=== PATIENT | male | born 1960 ===

== ENCOUNTER 2017-09-21 06:13 | Day surgery (SDC) | payer BC, OTHER ==
[~2017-09-21] VITALS: Ht 177.8 cm; Wt 105.0 kg
[~2017-09-21 06:13] MED LIST: ASPI-515 PO; ESCI5TAB7 PO; FENO48TA16 PO; INSU100V8 SQ; METF10002 PO; PRAV40TA2 PO; RAMI10CA PO; SITA25TA PO
[2017-09-21] MEDS ORDERED: EPINEPHRINE 1 MG/ML, 1ML ONE (06:20)
[2017-09-21] MEDS ORDERED: BUPIVACAINE/PF 0.5% ONE (06:20)
[2017-09-21 06:42] VITALS: BP 146/75
[2017-09-21] MEDS ORDERED: LACTATED RINGERS 1,000 ML IV SCH (06:42)
[2017-09-21 07:21] LABS: BASOPHILS # (AUTO) 0.11 x10^3/uL (0-0.1); BASOPHILS % (AUTO) 1 % (0-1); EOSINOPHILS # (AUTO) 0.37 x10^3/uL (0-0.4); EOSINOPHILS % (AUTO) 3 % (1-7); LYMPHOCYTES % (AUTO) 14 % (22-44); MD NO; MEAN CORPUSCULAR HGB CONC 32.9 g/dL (33.2-36.2); MEAN CORPUSCULAR VOLUME 82.2 fL (81-97); MEAN PLATELET VOLUME 7.9 fL (7.4-10.4); MONOCYTES # (AUTO) 0.67 x10^3/uL (0.2-0.8); MONOCYTES % (AUTO) 6 % (2-9); NEUTROPHILS # (AUTO) 8.33 x10^3/uL (1.8-6.8); NEUTROPHILS % (AUTO) 76 % (42-75); PLATELET COUNT 292 x10^3/uL (130-400); RED BLOOD COUNT 5.12 x10^6/uL (4.38-5.82); RED CELL DISTRIBUTION WIDTH 16.5 % (9.4-14.8)
[2017-09-21 07:32] LABS: ALANINE AMINOTRANSFERASE 29 U/L (12-78); ALBUMIN 3.2 g/dL (3.4-5.0); ANION GAP 7 mmol/L (5-15); CALCIUM 8.2 mg/dL (8.5-10.1); CHLORIDE 106 mmol/L (98-107)
[2017-09-21 07:34] LABS: ALKALINE PHOSPHATASE 117 U/L (45-117); BILIRUBIN,TOTAL 0.5 mg/dL (0.2-1.0); CREATININE 0.99 mg/dL (0.7-1.3); TOTAL PROTEIN 6.6 g/dL (6.4-8.2)
[2017-09-21] MEDS ORDERED: PROPOFOL 10 MG/ML, 50ML ONE (07:40)
[2017-09-21] MEDS ORDERED: CEFAZOLIN 1,000 MG ONE (07:40)
[2017-09-21] MEDS ORDERED: MIDAZOLAM 1 MG/ML, 2ML ONE (08:02)
[2017-09-21] MEDS ORDERED: ACETAMINOPHEN 325 MG TABLET PO PRN (09:00)
[2017-09-21] MEDS ORDERED: FENTANYL PF 100 MCG/2ML IV PRN (09:00)
[2017-09-21] MEDS ORDERED: OXYcodone 5 MG/5 ML ORAL.SOL UDC PO PRN (09:00)
[2017-09-21] MEDS ORDERED: LABETALOL 5MG/ML, 20ML IV PRN (09:00)
[2017-09-21] MEDS ORDERED: ONDANSETRON 2MG/ML, 2ML IVPush PRN (09:00)
[2017-09-21] MEDS ORDERED: hydrALAzine 20 MG/ML, 1ML IV PRN (09:00)
== END 2017-09-21 10:15 ==
LOC: OUT 06:13
PROVIDERS: ATTEND Surgery
DX: R51 Headache (principal); Z72.89 Other problems related to lifestyle; Z88.6 Allergy status to analgesic agent
CPT/HCPCS: 36415; 37609; 80053; 85025; 88305; J0171; J0690; J2250; J2704; J3490; J7120

== ENCOUNTER 2018-11-07 09:41 | Inpatient (IN) | payer BC ==
[~2018-11-07] VITALS: Ht 177.8 cm; Wt 98.2 kg
[~2018-11-07 09:41] MED LIST changes: -RAMI10CA PO; +RAMI10CA59 PO
[2018-11-07] MEDS ORDERED: HYDROmorphone 2 MG/ML, 1ML ONE (09:56)
[2018-11-07] MEDS ORDERED: FENTANYL PF 100 MCG/2ML ONE ×2 (09:58→10:54)
[2018-11-07] MEDS ORDERED: HEPARIN 1,000 UNITS/ML, 10ML ONE (09:59)
[2018-11-07] MEDS ORDERED: TICAGRELOR 90 MG TABLET ONE (09:59)
[2018-11-07] MEDS ORDERED: MIDAZOLAM 1 MG/ML, 5ML ONE ×2 (09:59→10:54)
[2018-11-07] MEDS ORDERED: LIDOCAINE 2%, 20ML ONE (09:59)
[2018-11-07] MEDS ORDERED: NITROGLYCERIN 5 MG/ML, 10ML ONE (09:59)
[2018-11-07] MEDS ORDERED: VERAPAMIL 2.5 MG/ML, 2ML ONE (09:59)
[2018-11-07] MEDS ORDERED: BIVALIRUDIN 250 MG ONE (09:59)
[2018-11-07] MEDS ORDERED: HYDROmorphone 1 MG/ML, 1ML INJ IV ONE (10:00)
--- NOTE | 2018-11-07 10:33 | NUR ---
[place]. ED ARRIVAL 0940. ICE BAG ASSEM[employer]ER DR OSORIO TO BEDSIDE 0945. PT REPORTS SUBSTERNAL CP STARTING AT 0300 THIS AM AND THEN WENT TO [facility] IN [place] AT 0750. PT ARRIVED WITH NITRO. GTT AND HEPARIN RUNNING UPON ARRIVAL. 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 VSS. [id number]&[id number]
[2018-11-07] MEDS ORDERED: DIPHENHYDRAMINE 50 MG/ML, 1ML ONE (10:54)
[2018-11-07] MEDS ORDERED: ENALAPRILAT 1.25 MG/ML, 2ML IVPush PRN (15:00)
[2018-11-07] MEDS ORDERED: HYDROmorphone 2 MG/ML, 1ML IVPush PRN (15:00)
[2018-11-07] MEDS ORDERED: DOCUSATE 100 MG CAPSULE PO PRN (15:00)
[2018-11-07] MEDS ORDERED: ONDANSETRON 2MG/ML, 2ML IVPush PRN (15:00)
[2018-11-07] MEDS ORDERED: POLYETHYLENE GLYCOL 17 GM PACKET PO PRN (15:00)
[2018-11-07] MEDS ORDERED: BISACODYL 10 MG SUPP PR PRN (15:00)
[2018-11-07] MEDS ORDERED: ENOXAPARIN 40 MG/0.4 ML SQ SCH (15:00)
[2018-11-07] MEDS ORDERED: LABETALOL 5MG/ML, 20ML IVPush PRN (15:00)
[2018-11-07] MEDS ORDERED: OXYcodone/APAP 5/325MG TABLET ONE (15:05)
[2018-11-07] MEDS: OXYcodone/APAP 5/325MG TABLET PO PRN ×2 (15:06→19:23)
[2018-11-07] MEDS ORDERED: INSULIN REGULAR 100 UNITS/ML, 3ML VIAL SQ-INSULIN SCH (16:00)
[2018-11-07] MEDS: INSULIN LISPRO 100 UNITS/ML, PEN SQ-INSULIN SCH ×2 (16:54→19:39)
[2018-11-07] MEDS: CARVEDILOL 3.125 MG TABLET PO SCH (16:54)
[2018-11-07] MEDS ORDERED: PRAVASTATIN 40 MG TABLET PO SCH (21:00)
[2018-11-08] MEDS: OXYcodone/APAP 5/325MG TABLET PO PRN (03:34)
[2018-11-08 04:17] LABS: MICROSCOPIC AUTO
[2018-11-08 04:20] LABS: CULTURE INDICATED? NO
[2018-11-08 04:38] LABS: BASOPHILS # (AUTO) 0.07 x10^3/uL (0-0.1); BASOPHILS % (AUTO) 1 % (0-1); EOSINOPHILS # (AUTO) 0.23 x10^3/uL (0-0.4); EOSINOPHILS % (AUTO) 2 % (1-7); LYMPHOCYTES # (AUTO) 1.31 x10^3/uL (1-3.4); LYMPHOCYTES % (AUTO) 9 % (22-44); MD NO; MEAN CORPUSCULAR HEMOGLOBIN 29.8 pg (27.5-34.5); MEAN CORPUSCULAR VOLUME 90.1 fL (81-97); MEAN PLATELET VOLUME 8.1 fL (7.4-10.4); MONOCYTES % (AUTO) 6 % (2-9); NEUTROPHILS # (AUTO) 11.54 x10^3/uL (1.8-6.8); NEUTROPHILS % (AUTO) 83 % (42-75); PLATELET COUNT 246 x10^3/uL (130-400); RED BLOOD COUNT 5.16 x10^6/uL (4.38-5.82); RED CELL DISTRIBUTION WIDTH 15.8 % (9.4-14.8)
[2018-11-08 04:52] LABS: ALBUMIN 3.2 g/dL (3.4-5.0); CHLORIDE 103 mmol/L (98-107)
[2018-11-08 04:59] LABS: ALANINE AMINOTRANSFERASE 72 U/L (12-78); ALKALINE PHOSPHATASE 94 U/L (45-117); ANION GAP 7 mmol/L (5-15); BILIRUBIN,TOTAL 0.9 mg/dL (0.2-1.0); CALCIUM 8.3 mg/dL (8.5-10.1); CHOL/HDL RATIO 5.1; CHOLESTEROL, TOTAL 97 mg/dL (140-239); HDL CHOL % 20 % (26-37); HDL CHOLESTEROL (DIRECT) 19 mg/dL (40-60); LDL CHOLESTEROL,CALCULATED 45 mg/dL (54-169); LDL/HDL RATIO 2.4 (0.5-3.0); TOTAL PROTEIN 6.3 g/dL (6.4-8.2); TRIGLYCERIDES 164 mg/dL (50-200); VLDL CHOLESTEROL 33 mg/dL (0-25)
[2018-11-08 05:13] LABS: HEMOGLOBIN A1C 7.1 % (4.2-6.3)
[2018-11-08 05:17] VITALS: BP 121/74
[2018-11-08] MEDS: CARVEDILOL 3.125 MG TABLET PO SCH ×2 (05:18→17:40)
[2018-11-08] MEDS: INSULIN LISPRO 100 UNITS/ML, PEN SQ-INSULIN SCH ×4 (07:00→22:11)
[2018-11-08] MEDS ORDERED: POTASSIUM CHLORIDE 20 MEQ TAB.ER.PRT PO ONE (08:30)
[2018-11-08] MEDS: TICAGRELOR 90 MG TABLET PO SCH ×2 (08:54→22:03)
[2018-11-08] MEDS: ASPIRIN 81 MG TABLET EC PO SCH (08:54)
[2018-11-08] MEDS: LISINOPRIL 20 MG TABLET PO SCH (08:55)
[2018-11-08] MEDS: ESCITALOPRAM 10MG TABLET PO SCH (08:56)
[2018-11-08] MEDS: SENNA/DOCUSATE TABLET PO SCH (08:56)
[2018-11-08] MEDS ORDERED: LISINOPRIL 20 MG TABLET PO SCH (09:00)
[2018-11-08] MEDS: FENOFIBRATE 54 MG TABLET PO SCH (09:05)
[2018-11-08] MEDS: ENOXAPARIN 40 MG/0.4 ML SQ SCH (09:05)
[2018-11-08] MEDS: INSULIN GLARGINE 100 UNITS/ML, PEN SQ-INSULIN SCH (09:06)
[2018-11-08 10:32] VITALS: BP 150/89
[2018-11-08 12:41] VITALS: BP 151/87
[2018-11-08] MEDS: ACETAMINOPHEN 325 MG TABLET PO PRN (19:34)
[2018-11-08 19:50] VITALS: BP 142/84
[2018-11-08] MEDS: ATORVASTATIN 80 MG TABLET PO SCH (22:03)
[2018-11-09 03:13] VITALS: BP 124/85
[2018-11-09 05:27] LABS: BASOPHILS # (AUTO) 0.06 x10^3/uL (0-0.1); BASOPHILS % (AUTO) 1 % (0-1); EOSINOPHILS # (AUTO) 0.15 x10^3/uL (0-0.4); EOSINOPHILS % (AUTO) 1 % (1-7); LYMPHOCYTES % (AUTO) 12 % (22-44); MD NO; MEAN CORPUSCULAR HEMOGLOBIN 29.3 pg (27.5-34.5); MEAN CORPUSCULAR HGB CONC 32.9 g/dL (33.2-36.2); MEAN PLATELET VOLUME 7.6 fL (7.4-10.4); MONOCYTES % (AUTO) 8 % (2-9); NEUTROPHILS # (AUTO) 9.37 x10^3/uL (1.8-6.8); NEUTROPHILS % (AUTO) 79 % (42-75); PLATELET COUNT 232 x10^3/uL (130-400); RED BLOOD COUNT 5.36 x10^6/uL (4.38-5.82); RED CELL DISTRIBUTION WIDTH 15.3 % (9.4-14.8)
[2018-11-09 05:40] LABS: ALANINE AMINOTRANSFERASE 50 U/L (12-78); ALBUMIN 3.3 g/dL (3.4-5.0); ANION GAP 7 mmol/L (5-15); CALCIUM 8.4 mg/dL (8.5-10.1); CHLORIDE 105 mmol/L (98-107)
[2018-11-09 05:43] LABS: ALKALINE PHOSPHATASE 96 U/L (45-117); CREATININE 0.92 mg/dL (0.7-1.3); TOTAL PROTEIN 6.6 g/dL (6.4-8.2)
[2018-11-09 06:10] VITALS: BP 128/83
[2018-11-09] MEDS: CARVEDILOL 3.125 MG TABLET PO SCH (06:14)
[2018-11-09] MEDS: ACETAMINOPHEN 325 MG TABLET PO PRN (06:36)
[2018-11-09] MEDS: INSULIN LISPRO 100 UNITS/ML, PEN SQ-INSULIN SCH ×4 (07:02→21:35)
[2018-11-09] MEDS: TICAGRELOR 90 MG TABLET PO SCH ×2 (08:31→21:34)
[2018-11-09] MEDS: FENOFIBRATE 54 MG TABLET PO SCH (08:31)
[2018-11-09] MEDS: LISINOPRIL 20 MG TABLET PO SCH (08:31)
[2018-11-09] MEDS: ASPIRIN 81 MG TABLET EC PO SCH (08:31)
[2018-11-09] MEDS: ESCITALOPRAM 10MG TABLET PO SCH (08:32)
[2018-11-09] MEDS: ENOXAPARIN 40 MG/0.4 ML SQ SCH (08:32)
[2018-11-09] MEDS: INSULIN GLARGINE 100 UNITS/ML, PEN SQ-INSULIN SCH (08:32)
[2018-11-09] MEDS: SENNA/DOCUSATE TABLET PO SCH (08:32)
[2018-11-09 09:04] VITALS: BP 144/88
[2018-11-09] MEDS: SODIUM CHLORIDE 0.9% 1,000 ML IV SCH ×2 (11:05→23:11)
[2018-11-09 15:27] VITALS: BP 129/89
[2018-11-09] MEDS ORDERED: MIDAZOLAM 1 MG/ML, 5ML ONE (16:43)
[2018-11-09] MEDS ORDERED: VERAPAMIL 2.5 MG/ML, 2ML ONE (16:43)
[2018-11-09] MEDS ORDERED: FENTANYL PF 100 MCG/2ML ONE (16:43)
[2018-11-09] MEDS ORDERED: BIVALIRUDIN 250 MG ONE ×3 (16:44→18:00)
[2018-11-09] MEDS ORDERED: HEPARIN 1,000 UNITS/ML, 10ML ONE (16:44)
[2018-11-09] MEDS ORDERED: SODIUM CHLORIDE 0.9% 1,000 ML IV SCH (18:14)
[2018-11-09] MEDS: CARVEDILOL 6.25 MG TABLET PO SCH (18:44)
[2018-11-09 20:25] VITALS: BP 167/117
[2018-11-09] MEDS: ACETYLCYSTEINE 600 MG CAPSULE PO SCH (21:34)
[2018-11-09] MEDS: ATORVASTATIN 80 MG TABLET PO SCH (21:34)
[2018-11-10 03:40] VITALS: BP 126/84
[2018-11-10] MEDS: CARVEDILOL 6.25 MG TABLET PO SCH (05:21)
[2018-11-10 05:33] LABS: BASOPHILS # (AUTO) 0.01 x10^3/uL (0-0.1); BASOPHILS % (AUTO) 0 % (0-1); EOSINOPHILS # (AUTO) 0.16 x10^3/uL (0-0.4); EOSINOPHILS % (AUTO) 1 % (1-7); LYMPHOCYTES # (AUTO) 1.35 x10^3/uL (1-3.4); LYMPHOCYTES % (AUTO) 10 % (22-44); MD NO; MEAN CORPUSCULAR HEMOGLOBIN 29.7 pg (27.5-34.5); MEAN PLATELET VOLUME 7.9 fL (7.4-10.4); MONOCYTES # (AUTO) 0.78 x10^3/uL (0.2-0.8); MONOCYTES % (AUTO) 6 % (2-9); NEUTROPHILS # (AUTO) 10.91 x10^3/uL (1.8-6.8); NEUTROPHILS % (AUTO) 83 % (42-75); PLATELET COUNT 248 x10^3/uL (130-400); RED CELL DISTRIBUTION WIDTH 15.5 % (9.4-14.8)
[2018-11-10 05:44] LABS: ANION GAP 7 mmol/L (5-15); CALCIUM 8.6 mg/dL (8.5-10.1); CHLORIDE 106 mmol/L (98-107)
[2018-11-10 05:45] LABS: CREATININE 0.88 mg/dL (0.7-1.3)
[2018-11-10] MEDS: INSULIN LISPRO 100 UNITS/ML, PEN SQ-INSULIN SCH (07:00)
[2018-11-10 08:45] VITALS: BP 130/91
[2018-11-10] MEDS: TICAGRELOR 90 MG TABLET PO SCH (08:48)
[2018-11-10] MEDS: ACETYLCYSTEINE 600 MG CAPSULE PO SCH (08:48)
[2018-11-10] MEDS: LISINOPRIL 20 MG TABLET PO SCH (08:48)
[2018-11-10] MEDS: ASPIRIN 81 MG TABLET EC PO SCH (08:48)
[2018-11-10] MEDS: ESCITALOPRAM 10MG TABLET PO SCH (08:48)
[2018-11-10] MEDS: ENOXAPARIN 40 MG/0.4 ML SQ SCH (08:53)
[2018-11-10] MEDS: INSULIN GLARGINE 100 UNITS/ML, PEN SQ-INSULIN SCH (08:53)
[2018-11-10] MEDS: SENNA/DOCUSATE TABLET PO SCH (08:54)
[2018-11-10] MEDS: FENOFIBRATE 54 MG TABLET PO SCH (08:54)
[2018-11-10] MEDS ORDERED: TICA90TA PO (09:07)
[2018-11-10] MEDS ORDERED: ACET325T26 PO (09:07)
[2018-11-10] MEDS ORDERED: LISI-170 PO (09:07)
[2018-11-10] MEDS ORDERED: CARV6.2512 PO (09:07)
[2018-11-10] MEDS ORDERED: ATOR-2 PO (09:07)
[2018-11-10] MEDS ORDERED: NITR0.4T28 SL (09:16)
== END 2018-11-10 11:00 | disposition home or self-care (01) | DRG 246 ==
LOC: EDBD → EDSEX → MERGE 09:41 → ED 10:09 → EDIP 10:13 → CCU 10:40 → 5SO 11-08 10:19 → DCLOUNGE 11-10 10:50
PROVIDERS: ADMIT Internal Medicine; ATTEND Internal Medicine
PROC: 4A023N7 Measurement of Cardiac Sampling and Pressure, Left Heart, Percutaneous Approach (ICD-10-PCS; principal; 2018-11-07)
PROC: 027034Z Dilation of Coronary Artery, One Artery with Drug-eluting Intraluminal Device, Percutaneous Approach (ICD-10-PCS; 2018-11-07)
PROC: B2111ZZ Fluoroscopy of Multiple Coronary Arteries using Low Osmolar Contrast (ICD-10-PCS; 2018-11-07)
PROC: 027136Z Dilation of Coronary Artery, Two Arteries with Three Drug-eluting Intraluminal Devices, Percutaneous Approach (ICD-10-PCS; 2018-11-09)
DX: I21.3 ST elevation (STEMI) myocardial infarction of unspecified site (principal); E87.1 Hypo-osmolality and hyponatremia; F11.20 Opioid dependence, uncomplicated; I50.40 Unspecified combined systolic (congestive) and diastolic (congestive) heart failure; D72.829 Elevated white blood cell count, unspecified; D75.1 Secondary polycythemia; E11.65 Type 2 diabetes mellitus with hyperglycemia; E78.5 Hyperlipidemia, unspecified; E87.6 Hypokalemia; Z96.651 Presence of right artificial knee joint; I11.0 Hypertensive heart disease with heart failure; I25.10 Atherosclerotic heart disease of native coronary artery without angina pectoris; I25.5 Ischemic cardiomyopathy; Z79.891 Long term (current) use of opiate analgesic; Z79.4 Long term (current) use of insulin; Z88.6 Allergy status to analgesic agent; Z82.49 Family history of ischemic heart disease and other diseases of the circulatory system; Z90.49 Acquired absence of other specified parts of digestive tract; Z87.891 Personal history of nicotine dependence
CPT/HCPCS: 36415; 93458; 93571; C9600; J3490; 0399T; 71045; 80047; 80048; 80053; 80061; 81001; 82962; 83036; 83735; 84100; 84484; 85025; 87081; 93005; 93306; 93454; 99156; 99157; C1769; C1894; C9601; G0378; J0583; J1170; J1644; J1650; J2250; J3010; C1725; C1874; C1887; J1200; J1815; J7030; Q9967